=== PATIENT | female | born 1970 | race Caucasian/White ===

== ENCOUNTER → 2016-11-14 | Outpatient (CLI) | payer BC | LOC: KOH-I 14:20 | DX: R22.1 Localized swelling, mass and lump, neck (principal) | CPT/HCPCS: 70490 ==

== ENCOUNTER 2016-11-20 10:43 | Emergency (ER) | payer BC ==
[2016-11-20 12:29] LABS: HEMOGLOBIN 15.4 gm/dl (12.3-15.3); RED BLOOD COUNT 4.79 M/UL (4.00-5.10); WHITE BLOOD COUNT 6.4 K/UL (4.5-11.0)
[2016-11-20 12:51] LABS: BUN/CREATININE RATIO 24 (0-10)
== END 2016-11-20 14:52 | disposition home or self-care (01) ==
LOC: ER1 10:43
PROVIDERS: Family Medicine
DX: R51 Headache (principal); R20.2 Paresthesia of skin; R20.0 Anesthesia of skin
CPT/HCPCS: 36415; 70450; 71010; 80053; 82550; 82553; 83874; 84484; 85025; 93005; 99284

== ENCOUNTER 2020-12-04 08:54 | Emergency (ER) | payer MEDICARE, OTHER ==
[2020-12-04 09:50] LABS: HEMOGLOBIN 14.8 gm/dl (12.3-15.3); RED BLOOD COUNT 4.87 M/UL (4.00-5.10)
[2020-12-04 10:16] LABS: BUN/CREATININE RATIO 12 (0-10)
[2020-12-04] MEDS ORDERED: PREDNISONE 50 M50 MG PO (12:03)
[2020-12-04] MEDS ORDERED: ZITHROMAX250 MG PO (12:03)
== END 2020-12-04 12:20 | disposition home or self-care (01) ==
LOC: ER1 08:54
PROVIDERS: Emergency Medicine
DX: J44.1 Chronic obstructive pulmonary disease with (acute) exacerbation (principal); E03.9 Hypothyroidism, unspecified
CPT/HCPCS: 36600; 71046; 80053; 82550; 82553; 82803; 83874; 83880; 84484; 85025; 93005; 94640; 94664; 94760; 96374; 96375; 99285; J0696; J2930